=== PATIENT | male | born 1965 | race Caucasian/White ===

== ENCOUNTER → 2016-03-27 | Outpatient (CLI) | payer OTHER ==
--- NOTE | 2016-03-27 17:28 | DX ---
PA and lateral chest. Clinical History: DX CHEST 2 VIEWS J40 BRONCITIS NOT SPECIFIED ACUTE OR CHRONIC Comparison Study: None available. Findings: The lungs are clear. No pleural disease identified. Heart size is normal. Perihilar bronchial wall thickening is present bilaterally suggestive of bronchitis. Postsurgical changes, left shoulder.. Impression: Central bronchitis. Otherwise negative.
== END ==
LOC: FIMAGING 15:52
PROVIDERS: ATTEND Family Medicine
DX: J40 Bronchitis, not specified as acute or chronic (principal)